=== PATIENT | female | born 1970 ===

== ENCOUNTER 2022-05-17 14:57 | Emergency (ER) | payer MEDICAID, SELFPAY ==
[2022-05-17 15:18] VITALS: BP 155/116; PULSE 109; RESP 18; TEMP 36.9; O2SAT 98; BMI 28.2
== END 2022-05-17 16:57 | disposition left against medical advice (07) ==
PROVIDERS: Emergency Provider Emergency Medicine
DX: N76.0 Acute vaginitis (principal); K61.0 Anal abscess
CPT/HCPCS: 99281